=== PATIENT | male | born 1970 | race Caucasian/White ===

== ENCOUNTER 2016-08-07 19:31 | Emergency (ER) | payer BC ==
--- NOTE | 2016-08-07 19:44 | Emergency Department Record ---
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 Co-workers witnessed his knees buckle and the patient fall to the floor completely unconscious. Patient arrived here by EMS alert and conversive but with no recollection of what happened. He states he currently has a headache and a trace of a nose bleed, but he has had the nose bleeding throughout the day prior to this event. He saw his PCP on 08-03-16, and was placed on an antibiotic which he cannot recall the name of to treat a sinus infection. He says it has been bothering his stomach and he has had some diarrhea. He states he has been diagnosed with asthma and has had nasal surgery for polyps in the past. MD Complaint: Other (syncope) - Related Data Home Medications Medication Instructions Recorded Confirmed Last Taken Calcium Carbonate [Calcium] 500 mg PO Q72HR 04/27/16 04/27/16 04/26/16 Calcium+Zinc DAILY 07/07/16 Unknown Ubidecarenone [Coq-10] 30 mg PO DAILY cap 07/07/16 Unknown Previous Rx's Medication Instructions Recorded Albuterol Sulfate [Ventolin Hfa] 1 - 2 puff IH .EVERY 4-6 HRS PRN 12/27/14 #1 inhaler Allergies Allergy/AdvReac Type Severity Reaction Status Date / Time No Known Drug Allergies Allergy Unverified 08/03/16 18:56 Review of Systems Reviewed: No additional complaints except as noted below Constitutional: Reports: As per HPI. Denies: Chills, Fever, Malaise, Night sweats, Weakness, Weight change Eyes: Reports: As per HPI. Denies: Eye discharge, Eye pain, Photophobia, Vision change ENT: Reports: As per HPI. Denies: Congestion, Dental pain, Ear pain, Epistaxis , Hearing loss, Throat pain Respiratory: Reports: As per HPI. Denies: Cough, Dyspnea, Hemoptysis, Stridor, Wheezes Cardiovascular: Reports: As per HPI. Denies: Arrhythmia, Chest pain, Dyspnea on exertion, Edema, Murmurs, Orthopnea, Palpitations, Paroxysmal nocturnal dyspnea, Rheumatic Fever, Syncope Endocrine: Reports: As per HPI. Denies: Fatigue, Heat or cold intolerance, Polydipsia, Polyuria Gastrointestinal: Reports: As per HPI. Denies: Abdominal pain, Constipation, Diarrhea, Hematemesis, Hematochezia, Melena, Nausea, Vomiting Genitourinary: Reports: As per HPI. Denies: Dysuria, Frequency, Hematuria, Incontinence, Retention, Testicular pain, Testicular mass, Urgency Musculoskeletal: Reports: As per HPI. Denies: Arthralgia, Back pain, Gout, Joint swelling, Myalgia, Neck pain Skin: Reports: As per HPI. Denies: Bruising, Change in color, Change in hair/ nails, Lesions, Pruritus, Rash Neurological: Reports: As per HPI. Denies: Abnormal gait, Confusion, Headache, Numbness, Paresthesias, Seizure, Tingling, Tremors, Vertigo, Weakness Psychiatric: Reports: As per HPI. Denies: Anxiety, Auditory hallucinations, Depression, Homicidal thoughts, Suicidal thoughts, Visual hallucinations Hematological/Lymphatic: Reports: As per HPI. Denies: Anemia, Blood Clots, Easy bleeding, Easy bruising, Swollen glands Past Medical History - SOCIAL HISTORY Smoking Status: Former smoker Alcohol Use Comment: nightly beers Drug Use: None - RESPIRATORY Hx Respiratory Disorders: Yes Hx Asthma: Yes - CARDIOVASCULAR Hx Cardio Disorders: Yes Comment:: Murmur - NEURO Hx Neuro Disorders: Yes Hx Dizziness: Yes - GI Hx GI Disorders: No - Hx Genitourinary Disorders: Yes Hx Bladder Problem: Yes - ENDOCRINE Hx Endocrine Disorders: No - MUSCULOSKELETAL Hx Musculoskeletal Disorders: Yes Hx Osteoporosis: Yes - PSYCH Hx Psych Problems: Yes Hx Anxiety: Yes Hx Depression: Yes - HEMATOLOGY/ONCOLOGY Hx Hematology/Oncology Disorders: No Physical Exam - General General Appearance: Alert, Oriented x3, Cooperative, Mild distress (trying to recall why he "passed out," trace of fresh blood at nares, no active bleeding) - Head Head exam: Normocephalic, Other (mild tenderness over his distal nose, left cheek and left forehead.) - Eye Eye exam: Normal appearance, PERRL Pupils: Normal accommodation - ENT ENT exam: Normal exam, Mucous membranes dry, Normal external ear exam, Normal orophraynx, TM's normal bilaterally Ear exam: Normal external inspection. negative: External canal tenderness Nasal Exam: Normal inspection, Discharge (speech sounds congested, trace of fresh blood in nares), Sinus tenderness (left maxilla and left frontal) Mouth exam: Normal external inspection, Tongue normal Teeth exam: Normal inspection. negative: Dental caries Throat exam: Normal inspection. negative: Tonsillar erythema, Tonsillar exudate - Neck Neck exam: Normal inspection, Full ROM, Tenderness (mild diffused posterior neck tenderness on palpation). negative: Lymphadenopathy - Respiratory Respiratory exam: Normal lung sounds bilaterally. negative: Chest wall tenderness, Respiratory distress - Cardiovascular Cardiovascular Exam: Regular rate, Normal rhythm, Normal heart sounds - GI/Abdominal GI/Abdominal exam: Soft, Normal bowel sounds. negative: Tenderness - Rectal Rectal exam: Deferred - exam: Deferred - Extremities Extremities exam: Normal inspection, Full ROM, Normal capillary refill. negative: Tenderness - Back Back exam: Reports: Normal inspection, Full ROM. Denies: CVA tenderness (R), CVA tenderness (L), Muscle spasm, Rash noted, Tenderness - Neurological Neurological exam: Alert, CN II-XII intact, Oriented X3, Reflexes normal - Psychiatric Psychiatric exam: Normal affect, Normal mood - Skin Skin exam: Dry, Intact, Normal color, Warm Course - Reevaluation(s) Reevaluation #1: Nurse reports the patient admits to daily alcohol consumption, but that he has not had a drink for the past 6 days. Patient reports that he typically drinks 2 -3 beers nightly. 08/07/16 19:49 08/07/16 21:15 Reevaluation #2: Discussed with Neurosurgeon Dr. Montes De Oca who accepts patient in transfer. Discussed with Trauma surgery community health consultant Dr. Scherer and EDept. attending Dr. Alicea who accept patient in transfer. 08/07/16 21:16 08/07/16 21:20 Reevaluation #3: Repeat exam prior to transfer reveals patient is alert, follows commands appropriately, ad is oriented times 3. Pupils =, reactive, EOMI, equal collar tacker and SLR 4 extremities. Second IV large bore established. 08/07/16 21:25 Medical Decision Making - Management Options MDM Management: Additional Work-up Planned (e.g. ADM/Transfer/OP Study) ( Transfer to [facility] for services not available here including neurosurgery.) - Data Complexity MDM Data: Labs Ordered and/or Reviewed, X-Ray Ordered and/or Reviewed ( Noncontrast Head CT: Thin acute subdural hematoma in the right tentorum compared to the left. No other abnormalities, no midline shift. There are aif fluid levels in bothmaxillary antrums and moderate membrane thickening in the ethmoids. There are no facial fractures identified. Cervical spine has no acute fractures but has degenerative changes. Per radiologist. ), EKG Ordered and/or Reviewed - Lab Data Result diagrams: 08/07/16 19:30 08/07/16 19:55 - EKG Data -: EKG Interpreted by Me EKG: No Acute Changes (No prior available) - Radiology Data Radiology results: Report reviewed Disposition Disposition: Transfer Clinical Impression: Subdural hematoma, acute Disposition: Acute Care Hospital Transfer Transfer To: [facility] Emergency trauma/neurosurgery services Reason For Transfer: subdural hematoma, syncope Accepting Physician: Dr. Montes De Oca neurosurgery/Dr. Scherer trauma/Dr. Alicea EDept Time Discussed w/Accepting Physician: 21:24 Condition: (2) Stable Forms: Patient Portal Access
[2016-08-07] MEDS ORDERED: 0.9 % SODIUM CHLORIDE 1,000 ML BAG IV ONE (19:49)
[2016-08-07] MEDS ORDERED: ONDANSETRON 4 MG ODT TABLET SL ONE (19:49)
[2016-08-07 19:55] LABS: BASO % 0.2 % (0-6); EOS % 1.2 % (0-6); GRAN % 67.9 % (47-80); HEMOGLOBIN 14.8 gm/dl (14.0-18.0); LYMPH % 23.9 % (16-45); MEAN CELL VOLUME 94.7 fl (81-97); MEAN CORPUSCULAR HEMOGLOBIN 32.6 pg (27-33); MEAN CORPUSCULAR HGB CONC 34.4 g/dl (32-36); MEAN PLATELET VOLUME 10.6 fl (7.4-10.4); MONO % 6.8 % (0-9); PLATELET COUNT 287 K/uL (130-400); RED BLOOD COUNT 4.54 M/uL (4.40-5.70); RED CELL DISTRIBUTION WIDTH 11.8 % (11.5-14.5); WHITE BLOOD COUNT W/O DIFF 10.2 K/uL (4.2-12.2)
[2016-08-07 20:20] LABS: LACTIC ACID 2.2 mmol/L (0.7-2.1)
[2016-08-07 20:22] LABS: INR 0.93; PARTIAL THROMBOPLASTIN TIME 26.3 SECONDS (24.5-39.1); PROTHROMBIN TIME (PATIENT) 10.5 SECONDS (9.5-12.1)
[2016-08-07 20:34] LABS: BLOOD UREA NITROGEN 14 mg/dL (9-20); CREATININE 0.9 mg/dL (0.66-1.25); EST GLOMERULAR FILTRATION RATE > 60 ml/min; GLUCOSE,RANDOM 116 mg/dL (70-110)
[2016-08-07 20:35] LABS: ALKALINE PHOSPHATASE 92 U/L (38-126); ALT/SGPT 29 U/L (21-72); AST/SGOT 20 U/L (17-59); CKMB 0.6 ug/L (0-6); TOTAL PROTEIN 6.7 gm/dL (6.3-8.2); TROPONIN I < 0.012 ng/mL (0.00-0.034)
[2016-08-07 21:07] LABS: URINE APPEARANCE CLEAR; URINE BILIRUBIN NEGATIVE (NEGATIVE); URINE BLOOD NEGATIVE (NEGATIVE); URINE COLOR YELLOW; URINE GLUCOSE (UA) NEGATIVE (NEGATIVE); URINE KETONE NEGATIVE (NEGATIVE); URINE LEUKOCYTE ESTERASE NEGATIVE (NEGATIVE); URINE NITRITE NEGATIVE (NEGATIVE); URINE PROTEIN NEGATIVE (NEGATIVE); URINE UROBILINOGEN 0.2 E.U./dL (0.20 - 1.00)
[2016-08-07 21:12] LABS: AMPHETAMINE SCREEN URINE NOT DETECTED; BARBITURATE SCREEN URINE NOT DETECTED; BENZODIAZEPINE SCREEN URINE NOT DETECTED; COCAINE SCREEN URINE NOT DETECTED; METHADONE SCREEN URINE NOT DETECTED; METHAMPHETAMINE SCREEN NOT DETECTED; OPIATE SCREEN URINE NOT DETECTED; OXYCODONE SCREEN URINE NOT DETECTED; PHENCYCLIDINE SCREEN URINE NOT DETECTED; PROPOXYPHENE SCREEN URINE NOT DETECTED; THC SCREEN URINE NOT DETECTED; TRICYCLIC ANTIDEPRESSANT SCRN NOT DETECTED
[2016-08-07 21:28] LABS: D-DIMER 5.76 mg/L FEU (0-0.59)
[2016-08-07] MEDS ORDERED: ONDANSETRON HCL IV 4 MG/2 ML VIAL IVP ONE (21:37)
[2016-08-07] MEDS ORDERED: 0.9 % SODIUM CHLORIDE 1000ML 1,000 ML IV ONE (21:38)
--- NOTE | 2016-08-12 13:16 | RADIOLOGY REPORT ---
DATE: 08/07/2016 at 8:29 p.m. EXAM: PORTABLE CHEST. HISTORY: Syncope. TECHNIQUE: Single AP view of the chest. COMPARISON: Two views of the chest dated 07/25/2013. FINDINGS: Heart size is probably stable allowing for the current AP as opposed to previous PA positioning. No acute infiltrate evident. No definite pleural effusion or pneumothorax evident. Mild torsion of the aorta. IMPRESSION: MILD TORSION OF THE AORTA. NO DEFINITE ACUTE INFILTRATE SEEN. JOB [facility]BER: [id number] [facility]
--- NOTE | 2016-08-12 13:21 | CT SCAN REPORT ---
DATE: 08/07/2016 at 20:20 p.m. EXAM: HEAD CT. HISTORY: The patient fell with a headache. TECHNIQUE: Axial CT scan of the head performed without intravenous contrast. COMPARISON: None. ENCOUNTER: Initial. FINDINGS: There is asymmetry in the tentorium with the right tentorium appearing slightly thicker and hyperdense compared to the left. The possibility of a thin, acute subdural hematoma along the right tentorium cannot be excluded. Elsewhere no appearance to suggest an acute intracranial hemorrhage identified. There is no appreciable midline shift evident. Moderate membrane thickening in the ethmoids bilaterally. Air fluid level in both maxillary sinuses. No depressed calvarial fracture is identified. IMPRESSION: 1. APPEARANCE SUSPICIOUS FOR A THIN, ACUTE SUBDURAL HEMATOMA ALONG THE RIGHT TENTORIUM. ELSEWHERE NO ACUTE INTRACRANIAL HEMORRHAGE EVIDENT. 2. AIR FLUID LEVELS IN BOTH MAXILLARY SINUSES AND MODERATE MEMBRANE THICKENING IN THE ETHMOIDS. JOB NUMBER: [id number] [facility]
--- NOTE | 2016-08-12 13:26 | CT SCAN REPORT ---
EXAM: FACIAL BONE CT WITHOUT CONTRAST HISTORY: PATIENT PASSED OUT AT WORK, FELL, HIT FLOOR, HEAD AND NECK PAIN. TECHNIQUE: Axial CT scan of the facial bones was performed without IV contrast. Comparison: None. Encounter: Initial. FINDINGS: There are large frontal sinuses, consistent with developmental variant. Moderate membrane thickening in the ethmoids bilaterally. Air fluid levels in both maxillary antra. Mild membrane thickening anteriorly in the left sphenoid sinus. The visualized mastoids and middle ear cavities as well as visualized frontal sinuses appear negative. No abnormal air collection seen within either orbit. No prevertebral soft tissue swelling is evident. No definite facial bone fracture is seen. IMPRESSION: 1. NO DEFINITE FACIAL BONE FRACTURE IDENTIFIED. 2. AIR FLUID LEVELS IN BOTH MAXILLARY ANTRA AND PROMINENT MEMBRANE THICKENING IN THE ETHMOIDS. 3. VERY LARGE FRONTAL SINUSES, A DEVELOPMENTAL VARIANT. JOB NUMBER: [id number] [facility]
--- NOTE | 2016-08-12 13:31 | CT SCAN REPORT ---
DATE: 08/07/2016 at 8:23 p.m. EXAM: CERVICAL SPINE CT. HISTORY: Syncope. The patient passed out and fell. Neck pain. TECHNIQUE: Axial CT scan of the entire cervical spine was performed without intravenous contrast. COMPARISON: None. ENCOUNTER: Initial. FINDINGS: Air fluid levels seen in both maxillary antra as noted on the head CT today. No apical pneumothorax is evident. No definite fracture of the cervical spine identified. No prevertebral soft tissue swelling is evident. Mild degenerative change at the odontoid-anterior arch of C1 articulation. A small amount of air in the region of the right C2 foramen is presumably intravenous air related to intravenous access. Somewhat heterogeneous thyroid gland bilaterally. Subtle nodules cannot be excluded. This could be further assessed with a thyroid ultrasound non-emergently if clinically warranted. IMPRESSION: 1. NO DEFINITE FRACTURE OR PREVERTEBRAL SOFT TISSUE SWELLING SEEN IN THE CERVICAL SPINE. 2. DEGENERATIVE CHANGE AT THE ODONTOID-ANTERIOR ARCH OF C1 ARTICULATION. 3. AIR FLUID LEVEL OF BOTH MAXILLARY ANTRA. 4. SOMEWHAT HETEROGENEOUS APPEARING THYROID BILATERALLY DESCRIBED ABOVE. [facility]: [id number] [facility]
== END 2016-08-07 21:46 | disposition short-term general hospital (02) ==
LOC: ER 19:31
DX: S06.5X1A Traumatic subdural hemorrhage with loss of consciousness of 30 minutes or less, initial encounter (principal); M54.2 Cervicalgia; Z87.891 Personal history of nicotine dependence; W18.30XA Fall on same level, unspecified, initial encounter; Y99.0 Civilian activity done for income or pay
CPT/HCPCS: 99285 ×2; 96374; 83605; 85025; 85730; 85610; 80076; 82553; 84484; 80048; 81003; 80305; 85379; 71010; 72125; 70450; 70486; 93005; 93010; G0480; J2405; 80320; J7030

== ENCOUNTER 2017-03-22 07:23 | Emergency (ER) | payer BC ==
[2017-03-22] MEDS ORDERED: SODIUM CHLORIDE 0.9% 500 ML IV ONE (07:53)
--- NOTE | 2017-03-22 08:05 | Emergency Department Record ---
History of Present Illness - General Chief Complaint: Numbness Stated Complaint: NOT FEELING RIGHT Time Seen by Provider: 03/22/17 07:38 Source: Patient Mode of Arrival: EMS Limitations: No limitations - History of Present Illness Initial Comments: The patient states he is here due to not feeling right today. He states he woke up this AM in a pool of sweat and also may have bit his tongue. There was no fall or trauma or injury. The patient since waking up has had muscle aches and cramps but denies any recent injury, illness, vomiting, diarrhea, fever, chills , or headache. He went to work not feeling well and decided to call an ambulance because of it. Presently he denies any pain, visual changes, nausea, vomiting, or diarrhea. The patient did have a fall in July of this year that could have been a seizure and was transferred from here to [facility]. He states he had a battery of tests but no diagnosis was given. He additionally has had similar episodes in the past where he wakes up with his tongue bitten and very sweaty but no diagnosis has ever been given. Onset/Timin -: Minutes(s) History of same: Yes Place: Work Severity: Mild - Rakesh Coma Scale Eye Response: (4) Open spontaneously Motor Response: (6) Obeys commands Verbal Response: (5) Oriented Rakesh Total: 15 - Related Data Home Medications: Previous Rx's Medication Instructions Recorded Albuterol Sulfate [Ventolin Hfa] 1 - 2 puff IH .EVERY 4-6 HRS PRN 12/27/14 #1 inhaler Doxycycline Monohydrate [Mondoxyne 100 mg PO BID #20 capsule 03/22/17 Nl] Allergies/Adverse Reactions: Allergies Allergy/AdvReac Type Severity Reaction Status Date / Time No Known Drug Allergies Allergy Verified 03/22/17 07:37 Travel Screening - Travel/Exposure Within Last 30 Days Have you traveled within the last 30 days?: No - Travel/Exposure Within Last Year Have you traveled outside the [place] in the last year?: No - Additonal Travel Details Have you been exposed to anyone with a communicable illness?: No - Travel Symptoms Symptom Screening: None Review of Systems Constitutional: Denies: Chills, Fever Eyes: Denies: Eye discharge ENT: Denies: Congestion Respiratory: Denies: Cough, Dyspnea Cardiovascular: Denies: Chest pain Endocrine: Denies: Fatigue Gastrointestinal: Denies: Abdominal pain Genitourinary: Denies: Dysuria Musculoskeletal: Denies: Arthralgia Past Medical History - SOCIAL HISTORY Smoking Status: Former smoker Alcohol Use: Rare Alcohol Use Comment: daily before event in July Drug Use: None - RESPIRATORY Hx Respiratory Disorders: Yes Hx Asthma: Yes - CARDIOVASCULAR Hx Cardio Disorders: Yes Comment:: Murmur - NEURO Hx Neuro Disorders: Yes Hx Dizziness: Yes Hx Seizures: Yes (last July) Comment:: [place] 2002, [employer] at age 10 lasting 8 months - GI Hx GI Disorders: No - Hx Genitourinary Disorders: Yes Hx Bladder Problem: Yes - ENDOCRINE Hx Endocrine Disorders: No - MUSCULOSKELETAL Hx Musculoskeletal Disorders: Yes Hx Osteoporosis: Yes - PSYCH Hx Psych Problems: Yes Hx Anxiety: Yes Hx Depression: Yes - HEMATOLOGY/ONCOLOGY Hx Hematology/Oncology Disorders: No Family Medical History Any Significant Family History?: Yes Physical Exam - General General Appearance: Alert, Oriented x3, Cooperative, No acute distress - Head Head exam: Atraumatic, Normocephalic, Normal inspection - Eye Eye exam: Normal appearance, PERRL - ENT Mouth exam: negative: Normal external inspection, Tongue normal (There is bruising to the distal tongue which does appear to be from biting.) - Neck Neck exam: Normal inspection, Full ROM. negative: Tenderness - Respiratory Respiratory exam: Normal lung sounds bilaterally. negative: Respiratory distress - Cardiovascular Cardiovascular Exam: Regular rate, Normal rhythm, Normal heart sounds - GI/Abdominal GI/Abdominal exam: Soft, Normal bowel sounds. negative: Tenderness - Extremities Extremities exam: Normal inspection, Full ROM, Normal capillary refill. negative: Tenderness - Neurological Neurological exam: Alert, Normal gait, Oriented X3, Other (Neg Drift and Rhomberg.). negative: Abnormal gait, Altered, Motor sensory deficit - Psychiatric Psychiatric exam: negative: Anxious, Depressed Course Vital Signs 03/22/17 07:27 Temperature 99.1 F Pulse Rate 88 Respiratory 18 Rate Blood Pressure 153/100 Pulse Ox 97 - Reevaluation(s) Reevaluation #1: I explained to the patient that he may have had a seizure and that we do recommend hospital admission for monitoring and for a seizure workup. The patient is refusing and will not agree to be transferred for a Neurology consult and EEG. I also offered to admit the patient to this hospital for monitoring and to possibly obtain the EEG here but he is refusing that also. I explained to him that the risk of leaving is that he could leave and have a seizure, stroke, become disabled and even . He understands and accepts the risks. He also was told to not drive or operate heavy machinery until this is evaluated further. 03/22/17 09:13 03/22/17 09:18 Medical Decision Making - Data Complexity MDM Data: Labs Ordered and/or Reviewed, X-Ray Ordered and/or Reviewed, EKG Ordered and/or Reviewed - Lab Data Result diagrams: 03/22/17 07:00 03/22/17 07:00 - EKG Data -: EKG Interpreted by Me EKG: No Acute Changes, Normal EKG - Radiology Data Radiology results: Report reviewed (Head CT: No acute intracranial abnormalities. R maxillary sinusitis.) Disposition Disposition: Discharge Clinical Impression: Weakness Disposition: Against Medical Advice Condition: (2) Stable Instructions: Weakness (ED) Additional Instructions: Please drink plenty of fluids and take the Doxycyline as directed. Please see your PCP for recheck CHRISTA. Please return to the ER for any seizure activity, pain, trauma or any injuries. Prescriptions: Doxycycline Monohydrate [Mondoxyne Nl] 100 mg PO BID #20 capsule Forms: Patient Portal Access Time of Disposition: 09:21 Quality - Quality Measures Quality Measures: N/A - Blood Pressure Screening View Details: Yes Does Patient Have Any of the Following: No Blood Pressure Classification: Hypertensive Reading Systolic Measurement: 132 Diastolic Measurement: 94 Screening for High Blood Pressure: < Pre-Hypertensive BP, F/U Documented > [ [id number]] Pre-Hypertensive Follow-up Interventions: Referral to alternative/primary care provider.
[2017-03-22 08:10] LABS: URINE APPEARANCE CLEAR; URINE BILIRUBIN NEGATIVE (NEGATIVE); URINE BLOOD NEGATIVE (NEGATIVE); URINE COLOR YELLOW; URINE GLUCOSE (UA) NEGATIVE (NEGATIVE); URINE KETONE NEGATIVE (NEGATIVE); URINE LEUKOCYTE ESTERASE NEGATIVE (NEGATIVE); URINE NITRITE NEGATIVE (NEGATIVE); URINE PROTEIN NEGATIVE (NEGATIVE); URINE UROBILINOGEN 0.2 E.U./dL (0.20 - 1.00)
[2017-03-22 08:10] LABS: BASO % 0.2 % (0-6); EOS % 1.5 % (0-6); HEMATOCRIT 39.9 % (42.0-52.0); HEMOGLOBIN 13.6 gm/dl (14.0-18.0); LYMPH % 7.1 % (16-45); MEAN CELL VOLUME 93.4 fl (81-97); MEAN CORPUSCULAR HGB CONC 34.1 g/dl (32-36); MEAN PLATELET VOLUME 10.8 fl (7.4-10.4); MONO % 6.1 % (0-9); PLATELET COUNT 248 K/uL (130-400); RED BLOOD COUNT 4.27 M/uL (4.40-5.70); RED CELL DISTRIBUTION WIDTH 11.7 % (11.5-14.5); WHITE BLOOD COUNT W/O DIFF 13.3 K/uL (4.2-12.2)
[2017-03-22 08:11] LABS: MEAN CORPUSCULAR HEMOGLOBIN 31.8 pg (27-33)
[2017-03-22 08:16] LABS: AMPHETAMINE SCREEN URINE NOT DETECTED; BARBITURATE SCREEN URINE NOT DETECTED; BENZODIAZEPINE SCREEN URINE NOT DETECTED; COCAINE SCREEN URINE NOT DETECTED; METHADONE SCREEN URINE NOT DETECTED; METHAMPHETAMINE SCREEN NOT DETECTED; OPIATE SCREEN URINE NOT DETECTED; OXYCODONE SCREEN URINE NOT DETECTED; PHENCYCLIDINE SCREEN URINE NOT DETECTED; PROPOXYPHENE SCREEN URINE NOT DETECTED; THC SCREEN URINE NOT DETECTED; TRICYCLIC ANTIDEPRESSANT SCRN NOT DETECTED
[2017-03-22 08:23] LABS: ALBUMIN 3.9 g/dL (4.0-5.0); ALKALINE PHOSPHATASE 110 U/L (40-129); ALT/SGPT 21 U/L (<41); AST/SGOT 27 U/L (10.0-50.0); BLOOD UREA NITROGEN 10 mg/dL (6-20); CREATININE 0.6 mg/dL (0.7-1.2); EST GLOMERULAR FILTRATION RATE > 60 mL/min; GLUCOSE,RANDOM 103 mg/dL (74-109); TOTAL PROTEIN 6.4 g/dL (6.6-8.7)
[2017-03-22 08:26] LABS: BILIRUBIN,DIRECT < 0.2 mg/dL (0-0.3)
--- NOTE | 2017-03-23 08:10 | CT SCAN REPORT ---
DATE: 03/22/2017. EXAM: CT OF THE BRAIN WITHOUT CONTRAST. HISTORY: Seizure. TECHNIQUE: Sequential axial images were obtained from the foramen magna to the vertex without contrast administration. FINDINGS: There is no large territorial infarct, hemorrhage, mass effect, or midline shift. There is right maxillary sinus disease. No extra-axial fluid collection. Mastoid air cells appear normal. IMPRESSION: 1. NO ACUTE INTRACRANIAL ABNORMALITY APPRECIATED. 2. RIGHT MAXILLARY SINUS DISEASE. JOB NUMBER: [id number] [facility]
== END 2017-03-22 09:31 | disposition left against medical advice (07) ==
LOC: ER 07:23
DX: R56.9 Unspecified convulsions (principal); R53.1 Weakness
CPT/HCPCS: 70450; 80048; 80076; 80305; 81003; 82550; 85027; 93005; 93010; 99284

== ENCOUNTER 2018-03-20 02:47 | Emergency (ER) | payer BC ==
--- NOTE | 2018-03-20 03:44 | Emergency Department Record ---
History of Present Illness - General Chief Complaint: General Stated Complaint: FEELING TINGLY ALL OVER Time Seen by Provider: 03/20/18 03:11 Source: Patient Mode of Arrival: Ambulatory Limitations: No limitations - History of Present Illness Initial Comments: pt states he fell asleep tonjght and slept very hard and kicked his coffee cup over and he bit his tongue twice. he now feels all tingly. he has had similar episodes in the past -: Hour(s) Place: Home Severity: Mild Quality: Tingling Improves With: None Worsens With: None Associated Symptoms: Denies other symptoms - [place] Coma Scale Eye Response: (4) Open spontaneously Motor Response: (6) Obeys commands Verbal Response: (5) Oriented [place] Total: 15 - Symptoms of Stroke Symptoms of stroke: Numbness - Related Data Home Medications: Home Medications Medication Instructions Recorded Confirmed Last Taken Multivitamin [Multi-Vitamin Daily] 1 each PO DAILY 03/20/18 03/20/18 Unknown Allergies/Adverse Reactions: Allergies Allergy/AdvReac Type Severity Reaction Status Date / Time No Known Drug Allergies Allergy Verified 03/20/18 02:49 Travel Screening - Travel/Exposure Within Last 30 Days Have you traveled within the last 30 days?: No - Travel Symptoms Symptom Screening: None Review of Systems Reviewed: No additional complaints except as noted below Constitutional: Reports: As per HPI. Denies: Chills, Fever, Malaise, Night sweats, Weakness, Weight change Eyes: Reports: As per HPI. Denies: Eye discharge, Eye pain, Photophobia, Vision change ENT: Reports: As per HPI. Denies: Congestion, Dental pain, Ear pain, Epistaxis , Hearing loss, Throat pain Respiratory: Reports: As per HPI. Denies: Cough, Dyspnea, Hemoptysis, Stridor, Wheezes Cardiovascular: Reports: As per HPI. Denies: Arrhythmia, Chest pain, Dyspnea on exertion, Edema, Murmurs, Orthopnea, Palpitations, Paroxysmal nocturnal dyspnea, Rheumatic Fever, Syncope Endocrine: Reports: As per HPI. Denies: Fatigue, Heat or cold intolerance, Polydipsia, Polyuria Gastrointestinal: Reports: As per HPI. Denies: Abdominal pain, Constipation, Diarrhea, Hematemesis, Hematochezia, Melena, Nausea, Vomiting Genitourinary: Reports: As per HPI. Denies: Dysuria, Frequency, Hematuria, Incontinence, Retention, Testicular pain, Testicular mass, Urgency Musculoskeletal: Reports: As per HPI. Denies: Arthralgia, Back pain, Gout, Joint swelling, Myalgia, Neck pain Skin: Reports: As per HPI. Denies: Bruising, Change in color, Change in hair/ nails, Lesions, Pruritus, Rash Neurological: Reports: As per HPI, Tingling. Denies: Abnormal gait, Confusion, Headache, Numbness, Paresthesias, Seizure, Tremors, Vertigo, Weakness Psychiatric: Reports: As per HPI. Denies: Anxiety, Auditory hallucinations, Depression, Homicidal thoughts, Suicidal thoughts, Visual hallucinations Hematological/Lymphatic: Reports: As per HPI. Denies: Anemia, Blood Clots, Easy bleeding, Easy bruising, Swollen glands Past Medical History - SOCIAL HISTORY Smoking Status: Former smoker Alcohol Use: None Drug Use: None - RESPIRATORY Hx Respiratory Disorders: Yes Hx Asthma: Yes - CARDIOVASCULAR Hx Cardio Disorders: Yes Comment:: Murmur - NEURO Hx Neuro Disorders: Yes Hx Dizziness: Yes Hx Seizures: Yes (last July) Comment:: [place] 2002, [facility] at age 10 lasting 8 months; fall w/ subdural - GI Hx GI Disorders: No - Hx Genitourinary Disorders: Yes Hx Bladder Problem: Yes - ENDOCRINE Hx Endocrine Disorders: No - MUSCULOSKELETAL Hx Musculoskeletal Disorders: Yes Hx Osteoporosis: Yes - PSYCH Hx Psych Problems: Yes Hx Anxiety: Yes Hx Depression: Yes - HEMATOLOGY/ONCOLOGY Hx Hematology/Oncology Disorders: No Family Medical History Any Significant Family History?: Yes Hx Dementia: Mother, Grandparents Physical Exam - General General Appearance: Alert, Oriented x3, Cooperative, Mild distress - Head Head exam: Normal inspection - Eye Eye exam: Normal appearance, PERRL, EOMI Pupils: Normal accommodation - ENT ENT exam: Normal exam, Mucous membranes moist, Normal external ear exam, Normal orophraynx Ear exam: Normal external inspection. negative: External canal tenderness Nasal Exam: Normal inspection. negative: Discharge, Sinus tenderness Mouth exam: Normal external inspection, Other ( tpngue tender, no active bleeding) Teeth exam: Normal inspection. negative: Dental caries Throat exam: Normal inspection. negative: Tonsillar erythema, Tonsillar exudate - Neck Neck exam: Normal inspection, Full ROM. negative: Tenderness - Respiratory Respiratory exam: Normal lung sounds bilaterally. negative: Respiratory distress - Cardiovascular Cardiovascular Exam: Regular rate, Normal rhythm, Normal heart sounds - GI/Abdominal GI/Abdominal exam: Soft, Normal bowel sounds. negative: Tenderness - Rectal Rectal exam: Deferred - exam: Deferred - Extremities Extremities exam: Normal inspection, Full ROM, Normal capillary refill. negative: Tenderness - Back Back exam: Reports: Normal inspection, Full ROM. Denies: Muscle spasm, Rash noted, Tenderness - Neurological Neurological exam: Alert, CN II-XII intact, Normal gait, Oriented X3 - Psychiatric Psychiatric exam: Normal affect, Normal mood - Skin Skin exam: Dry, Intact, Normal color, Warm Course Vital Signs 03/20/18 02:54 Temperature 98.6 F Pulse Rate [ 71 Pulse Ox Probe] Respiratory 20 Rate Blood Pressure 143/98 [Left Arm] Pulse Ox 97 - Reevaluation(s) Reevaluation #1: 03/20/18 04:41 pt states hes been having intermittent tingling for years in his whole body, especially the lower extremities Medical Decision Making - Lab Data Result diagrams: 03/20/18 03:40 03/20/18 03:40 Disposition Disposition: Discharge Clinical Impression: Seizure-like activity Disposition: Home, Self-Care Condition: (1) Good Instructions: New Onset Absence Seizures in Adults (ED) Additional Instructions: follow up with neurologist CHRISTA for further evaluation and EEG. return sooner if worse. no driving until cleared by neurologist Referrals: [facility] [Provider Group] Forms: Patient Portal Access Quality - Quality Measures Quality Measures: N/A - Blood Pressure Screening Does Patient Have Any of the Following: No Blood Pressure Classification: Hypertensive Reading Systolic Measurement: 143 Diastolic Measurement: 98 Screening for High Blood Pressure: < First Hypertensive BP, F/U Documented > [ G8950] First Hypertensive Follow-up Interventions: Follow-up with rescreen GT 1 day and LT 4 weeks.
[2018-03-20 03:47] LABS: BASO % 0.3 % (0-6); EOS % 4.1 % (0-6); GRAN % 76.1 % (47-80); HEMATOCRIT 40.8 % (42.0-52.0); HEMOGLOBIN 13.8 gm/dl (14.0-18.0); MEAN CELL VOLUME 94.9 fl (81-97); MEAN CORPUSCULAR HGB CONC 33.8 g/dl (32-36); MEAN PLATELET VOLUME 10.2 fl (7.4-10.4); MONO % 6.5 % (0-9); PLATELET COUNT 282 K/uL (130-400); RED CELL DISTRIBUTION WIDTH 11.5 % (11.5-14.5); URINE APPEARANCE CLEAR; URINE BILIRUBIN NEGATIVE (NEGATIVE); URINE BLOOD NEGATIVE (NEGATIVE); URINE COLOR YELLOW; URINE GLUCOSE (UA) NEGATIVE (NEGATIVE); URINE KETONE NEGATIVE (NEGATIVE); URINE LEUKOCYTE ESTERASE NEGATIVE (NEGATIVE); URINE NITRITE NEGATIVE (NEGATIVE); URINE PROTEIN NEGATIVE (NEGATIVE); URINE UROBILINOGEN 0.2 E.U./dL (0.20 - 1.00)
[2018-03-20 03:51] LABS: AMPHETAMINE SCREEN URINE NOT DETECTED; BARBITURATE SCREEN URINE NOT DETECTED; BENZODIAZEPINE SCREEN URINE NOT DETECTED; COCAINE SCREEN URINE NOT DETECTED; METHADONE SCREEN URINE NOT DETECTED; METHAMPHETAMINE SCREEN NOT DETECTED; OPIATE SCREEN URINE NOT DETECTED; OXYCODONE SCREEN URINE NOT DETECTED; PHENCYCLIDINE SCREEN URINE NOT DETECTED; PROPOXYPHENE SCREEN URINE NOT DETECTED; THC SCREEN URINE NOT DETECTED; TRICYCLIC ANTIDEPRESSANT SCRN NOT DETECTED
[2018-03-20 04:00] LABS: BLOOD UREA NITROGEN 15 mg/dL (6-20); EST GLOMERULAR FILTRATION RATE > 60 mL/min; TOTAL PROTEIN 7.1 g/dL (6.6-8.7)
[2018-03-20 04:02] LABS: GLUCOSE,RANDOM 110 mg/dL (74-109)
[2018-03-20 04:05] LABS: ALB/GLOB RATIO 1.6 (1.1-1.8); ALBUMIN 4.4 g/dL (4.0-5.0); ALKALINE PHOSPHATASE 109 U/L (40-129); ALT/SGPT 28 U/L (<41); AST/SGOT 21 U/L (10.0-50.0)
[2018-03-20 04:16] LABS: THYROID STIMULATING HORMONE 2.18 uIU/mL (0.270-4.20)
--- NOTE | 2018-03-21 15:05 | CT SCAN REPORT ---
EXAM: NONCONTRAST CT OF THE HEAD HISTORY: POSSIBLE SEIZURE AND LETHARGY. TECHNIQUE: Noncontrast CT of the head was obtained. Comparison: Noncontrast CT of the head 03/22/17. FINDINGS: No midline shift, mass effect, or abnormal intra or extraaxial fluid collection. No cerebral edema. Focal mass or intracranial hemorrhage detected. Focal hypodensities in the subinsular regions bilaterally, seen previously and suggestive of remote lacunar infarctions. The ventricles are within normal size limits. The basal cisterns are not effaced. Partial opacification of bilateral ethmoid air cells and the maxillary sinuses, more prominent on the right. No evidence of a displaced calvarial fracture on bone window images. IMPRESSION: 1. NO DEFINITE ACUTE INTRACRANIAL FINDINGS. CHRONIC FOCAL HYPODENSITIES IN THE SUBINSULAR REGIONS OF BILATERAL BASAL GANGLIA, SIMILAR FROM PRIOR. 2. BILATERAL ETHMOID AND MAXILLARY SINUS DISEASE. JOB NUMBER: [id number] MTDD
== END 2018-03-20 04:56 | disposition home or self-care (01) ==
LOC: ER 02:47
DX: R56.9 Unspecified convulsions (principal); Z87.891 Personal history of nicotine dependence
CPT/HCPCS: 70450; 80053; 80305; 81003; 84443; 85025; 99283; 99284

== ENCOUNTER 2019-02-12 05:35 | Emergency (ER) | payer BC ==
[2019-02-12] MEDS ORDERED: DOXYCYCLINE HYCLATE 100 MG CAPSULE PO ONE (05:55)
[2019-02-12] MEDS ORDERED: ALBUTEROL SULFATE (0.083%) 2.5 MG/3 ML NEB INH ONE (05:56)
--- NOTE | 2019-02-12 05:56 | Emergency Department Record ---
History of Present Illness - General Chief Complaint: Cough Stated Complaint: CHEST CONGESTION/OVI Time Seen by Provider: 02/12/19 05:47 Source: Patient Mode of Arrival: Ambulatory Limitations: No limitations - History of Present Illness Initial Comments: The patient is here due to a 10 day hx of cough and congestion which has been slowly worsening. He woke up this AM SOB with feeling that his chest was tight similar to when he was young and had asthma. There has been no fever, chills, CP, bloody sputum or ST but he has had nasal congestion. MD Complaint: Cough, Nasal congestion, Rhinorrhea Onset/Timin -: Days(s) Severity: Mild Severity scale (1-10): 2 Consistency: Constant, Getting worse - Related Data Previous Rx's Medication Instructions Recorded Albuterol Sulfate [Proair Hfa] 2 puff IH QID PRN #1 inhaler 02/12/19 Doxycycline Monohydrate [Mondoxyne 100 mg PO BID 7 Days #14 capsule 02/12/19 Nl] Allergies Allergy/AdvReac Type Severity Reaction Status Date / Time No Known Drug Allergies Allergy Unverified 08/11/18 11:05 Travel Screening - Travel/Exposure Within Last 30 Days Have you traveled within the last 30 days?: No - Travel Symptoms Symptom Screening: None Review of Systems Constitutional: Reports: Malaise. Denies: Chills, Fever Eyes: Denies: Eye discharge ENT: Reports: Congestion Respiratory: Reports: Cough, Dyspnea. Denies: Hemoptysis Cardiovascular: Denies: Chest pain Past Medical History - SOCIAL HISTORY Smoking Status: Former smoker Alcohol Use: None Drug Use: None - RESPIRATORY Hx Respiratory Disorders: Yes Hx Asthma: Yes - CARDIOVASCULAR Hx Cardio Disorders: Yes Comment:: Murmur - NEURO Hx Neuro Disorders: Yes Hx Dizziness: Yes Hx Seizures: Yes (last July) Comment:: [place] 2002, [facility] at age 10 lasting 8 months; 2-2016 fall w/subdural - GI Hx GI Disorders: No - Hx Genitourinary Disorders: Yes Hx Bladder Problem: Yes - ENDOCRINE Hx Endocrine Disorders: No - MUSCULOSKELETAL Hx Musculoskeletal Disorders: Yes Hx Osteoporosis: Yes - PSYCH Hx Psych Problems: Yes Hx Anxiety: Yes Hx Depression: Yes - HEMATOLOGY/ONCOLOGY Hx Hematology/Oncology Disorders: No Family Medical History Any Significant Family History?: Yes Hx Dementia: Mother, Grandparents Physical Exam - General General Appearance: Alert, Oriented x3, Cooperative, No acute distress - Head Head exam: Atraumatic, Normocephalic, Normal inspection - Eye Eye exam: Normal appearance, PERRL. negative: Conjunctival injection - ENT ENT exam: negative: TM's normal bilaterally (There is bilateral cerumen blocking visualization of the TM's.) Nasal Exam: Discharge Throat exam: Normal inspection. negative: Tonsillar erythema, Tonsillomegaly, Tonsillar exudate - Neck Neck exam: Normal inspection, Full ROM. negative: Tenderness - Respiratory Respiratory exam: Normal lung sounds bilaterally. negative: Respiratory distress, Rhonchi, Stridor, Wheezes - Cardiovascular Cardiovascular Exam: Regular rate, Normal rhythm, Normal heart sounds - GI/Abdominal GI/Abdominal exam: Soft, Normal bowel sounds. negative: Tenderness - Extremities Extremities exam: Normal inspection, Full ROM, Normal capillary refill. negative: Tenderness - Back Back exam: Reports: Normal inspection - Neurological Neurological exam: Alert, Normal gait. negative: Abnormal gait, Motor sensory deficit Course Vital Signs 02/12/19 05:40 Temperature 97.8 F Pulse Rate [ 65 Pulse Ox Probe] Respiratory 24 Rate Blood Pressure 141/89 Pulse Ox 97 - Reevaluation(s) Reevaluation #1: I did explain to the patient that we will treat him with an oral Abx along with an inhaller. We will give him an albuterol tx here in the ER due to the slight chest tightness and will also start him on an oral Abx. 02/12/19 05:59 Reevaluation #2: The patient is feeling better after the albuterol tx. His lungs are clear and definitely feel less tight per patient. He feels ready for home. 02/12/19 06:12 Disposition Disposition: Discharge Clinical Impression: Bronchitis Disposition: Home, Self-Care Condition: (2) Stable Instructions: Acute Bronchitis (ED) Additional Instructions: Please use your home FLonase and add an OTC antihistamine decongestant as needed. Continue the Doxycyline and Albuterol as directed and please see your doctor this week if not better. Return to the ER for any worsening symptoms. Prescriptions: Doxycycline Monohydrate [Mondoxyne Nl] 100 mg PO BID 7 Days #14 capsule Albuterol Sulfate [Proair Hfa] 2 puff IH QID PRN #1 inhaler PRN Reason: Cough And Difficulty Breathing Forms: Patient Portal Access Time of Disposition: 06:03 Quality - Quality Measures Quality Measures: N/A - Blood Pressure Screening View Details: Yes Does Patient Have Any of the Following: No Blood Pressure Classification: Pre-Hypertensive BP Reading Systolic Measurement: 141 Diastolic Measurement: 89 Screening for High Blood Pressure: < Pre-Hypertensive BP, F/U Documented > [G8950] Pre-Hypertensive Follow-up Interventions: Referral to alternative/primary care provider.
== END 2019-02-12 06:19 | disposition home or self-care (01) ==
LOC: ER 05:35
DX: J20.9 Acute bronchitis, unspecified (principal); R07.89 Other chest pain; Z87.891 Personal history of nicotine dependence
CPT/HCPCS: 94640; 99283; J7613

== ENCOUNTER 2019-05-10 16:22 | Emergency (ER) | payer BC ==
[2019-05-10] MEDS ORDERED: ACETAMINOPHEN 1,000 MG/100 ML BTL IVPB ONE (16:43)
--- NOTE | 2019-05-10 16:46 | Emergency Department Record ---
History of Present Illness - General Chief Complaint: Abdominal Pain Stated Complaint: ABD PAIN Time Seen by Provider: 05/10/19 16:36 Source: Patient Mode of Arrival: Ambulatory Limitations: No limitations - History of Present Illness Initial Comments: The patient is here due to a 3 week hx of bilateral lower chest pain. The pain is sharp and stabbing and worse with rolling over in bed and movement. There has been no SOB, OVI, sweating or nausea with the pain. The patient denies that the pain is related to eating or drinking. He has had some upper abdominal pain also but that is gone now. MD Complaint: Other Onset/Timin -: Week(s) Location: Other (lower anterior chest.) Radiation: None Severity scale (1-10): 3 Quality: Sharp Consistency: Intermittent Improves With: Nothing Worsens With: Nothing - Related Data Previous Rx's Medication Instructions Recorded Naproxen [Naprosyn] 500 mg PO BID #14 tablet. 05/10/19 Allergies Allergy/AdvReac Type Severity Reaction Status Date / Time No Known Drug Allergies Allergy Verified 05/10/19 16:28 Travel Screening - Travel/Exposure Within Last 30 Days Have you traveled within the last 30 days?: No - Travel/Exposure Within Last Year Have you traveled outside the [place] in the last year?: No - Additonal Travel Details Have you been exposed to anyone with a communicable illness?: No - Travel Symptoms Symptom Screening: None Review of Systems Constitutional: Denies: Chills, Fever Eyes: Denies: Eye discharge ENT: Denies: Congestion Respiratory: Reports: Cough. Denies: Dyspnea Past Medical History - SOCIAL HISTORY Smoking Status: Former smoker Alcohol Use: Occasional Drug Use: None - RESPIRATORY Hx Respiratory Disorders: Yes Hx Asthma: Yes - CARDIOVASCULAR Hx Cardio Disorders: Yes Comment:: Murmur - NEURO Hx Neuro Disorders: Yes Hx Dizziness: Yes Hx Seizures: Yes (last July) Comment:: [place] 2002, [facility] at age 10 lasting 8 months; 2-2016 fall w/subdural - GI Hx GI Disorders: No - Hx Genitourinary Disorders: Yes Hx Bladder Problem: Yes - ENDOCRINE Hx Endocrine Disorders: No - MUSCULOSKELETAL Hx Musculoskeletal Disorders: Yes Hx Osteoporosis: Yes - PSYCH Hx Psych Problems: Yes Hx Anxiety: Yes Hx Depression: Yes - HEMATOLOGY/ONCOLOGY Hx Hematology/Oncology Disorders: No Family Medical History Any Significant Family History?: Yes Hx Dementia: Mother, Grandparents Physical Exam - General General Appearance: Alert, Oriented x3, Cooperative, No acute distress - Head Head exam: Atraumatic, Normocephalic, Normal inspection - Eye Eye exam: Normal appearance, PERRL, EOMI - ENT Throat exam: Normal inspection. negative: Tonsillar erythema, Tonsillar exudate - Neck Neck exam: Normal inspection, Full ROM. negative: Tenderness - Respiratory Respiratory exam: Normal lung sounds bilaterally, Chest wall tenderness (The pain is 100% reproducible with palpation of the anterior mid chest wall just below the nipples. ). negative: Respiratory distress - Cardiovascular Cardiovascular Exam: Regular rate, Normal rhythm, Normal heart sounds - GI/Abdominal GI/Abdominal exam: Soft, Normal bowel sounds. negative: Distended, Guarding, Hernia, Rebound, Rigid, Tenderness (There is no RUQ tenderness.) - Extremities Extremities exam: Normal inspection, Full ROM, Normal capillary refill. negative: Tenderness Image of Full Body: 1 - Area of pain and tenderness. 2 - Area of pain and tenderness. - Back Back exam: Reports: Normal inspection - Neurological Neurological exam: Alert, Normal gait. negative: Abnormal gait, Motor sensory deficit Course Vital Signs 05/10/19 16:30 Temperature 98.3 F Pulse Rate 62 Respiratory 20 Rate Blood Pressure 136/88 Pulse Ox 97 - Reevaluation(s) Reevaluation #1: The patient is doing much better and is pain free at this time. He still does h ave very mild pain with deep palpation and chest twisting. I did discuss the xray results with him and the need for F/U with his PCP for a chest CT. I also did discuss the fact he does not have any abdominal pain or tenderness and his cardiac evaluation was all normal. 05/10/19 17:37 Medical Decision Making - Data Complexity MDM Data: Labs Ordered and/or Reviewed, X-Ray Ordered and/or Reviewed, EKG Ordered and/or Reviewed - Lab Data Result diagrams: 05/10/19 16:30 05/10/19 16:30 - EKG Data -: EKG Interpreted by Me EKG: No Acute Changes, Normal EKG - Radiology Data Radiology results: Report reviewed (CXR: Nodule in the L lower lobe, O/W neg.) Disposition Disposition: Discharge Clinical Impression: Chest wall pain Disposition: Home, Self-Care Condition: (2) Stable Instructions: Chest Wall Pain (ED) Additional Instructions: Please take the Naprosyn as directed and please see your family doctor for recheck and possibly a chest CT vs repeat chest xrays. Return to the ER for any worsening pain, fever, or vomiting. Prescriptions: Naproxen [Naprosyn] 500 mg PO BID #14 tablet.dr Forms: Patient Portal Access Time of Disposition: 17:40 Quality - Quality Measures Quality Measures: N/A - Blood Pressure Screening View Details: Yes Does Patient Have Any of the Following: No Blood Pressure Classification: Pre-Hypertensive BP Reading Systolic Measurement: 136 Diastolic Measurement: 88 Screening for High Blood Pressure: < Pre-Hypertensive BP, F/U Documented > [G8950] Pre-Hypertensive Follow-up Interventions: Referral to alternative/primary care provider.
[2019-05-10 16:53] LABS: ABSOLUTE NEUTROPHIL COUNT 4.57; BASO % 0.4 % (0-6); EOS % 2.9 % (0-6); HEMATOCRIT 41.7 % (42.0-52.0); HEMOGLOBIN 13.9 gm/dl (14.0-18.0); LYMPH % 25.7 % (16-45); MEAN CELL VOLUME 95.9 fl (81-97); MEAN CORPUSCULAR HGB CONC 33.3 g/dl (32-36); MEAN PLATELET VOLUME 10.5 fl (7.4-10.4); PLATELET COUNT 276 K/uL (130-400); RED BLOOD COUNT 4.35 M/uL (4.40-5.70); RED CELL DISTRIBUTION WIDTH 11.5 % (11.5-14.5); WHITE BLOOD COUNT W/O DIFF 7.3 K/uL (4.2-12.2)
[2019-05-10 16:55] LABS: MEAN CORPUSCULAR HEMOGLOBIN 31.9 pg (27-33)
[2019-05-10 17:03] LABS: BLOOD UREA NITROGEN 13 mg/dL (6-20); CREATININE 0.6 mg/dL (0.7-1.2); EST GLOMERULAR FILTRATION RATE > 60 mL/min
[2019-05-10 17:04] LABS: TOTAL PROTEIN 7.5 g/dL (6.6-8.7)
[2019-05-10 17:06] LABS: GLUCOSE,RANDOM 106 mg/dL (74-109)
[2019-05-10 17:08] LABS: ALBUMIN 4.5 g/dL (4.0-5.0); ALT/SGPT 19 U/L (<41); AST/SGOT 19 U/L (10.0-50.0); BILIRUBIN,DIRECT < 0.2 mg/dL (0-0.3)
[2019-05-10 17:09] LABS: ALKALINE PHOSPHATASE 117 U/L (40-129)
--- NOTE | 2019-05-10 17:20 | RADIOLOGY REPORT ---
EXAMINATION: Two View Chest Radiographs EXAM DATE: 05/10/2019 5:10 PM TECHNIQUE: Frontal and lateral views INDICATION: cough COMPARISON: August 07, 2016 ENCOUNTER: Not applicable FINDINGS: The heart, mediastinum, and pulmonary vasculature are normal. 7 mm nodular density left lower lobe. N o lung consolidation or pleural effusions are present. IMPRESSION: Negative for focal infiltrate. 7 mm the nodular density left lower lobe. While this may be related to overlapping rib shadows a pulm onary nodule cannot be excluded. If clinically indicated this region could be better evaluated with o blique images or CT scan of the chest. Dictated by: Lea Alexander MD on 05/10/2019 5:13 PM. .
== END 2019-05-10 17:50 | disposition home or self-care (01) ==
LOC: ER 16:22
DX: R07.89 Other chest pain (principal); R91.1 Solitary pulmonary nodule; Z87.891 Personal history of nicotine dependence
CPT/HCPCS: 71046; 80048; 80076; 84484; 85025; 93005; 93010; 96365; 99284

== ENCOUNTER 2019-07-22 13:54 | Emergency (ER) | payer BC ==
--- NOTE | 2019-07-22 14:36 | Emergency Department Record ---
History of Present Illness - General Chief Complaint: Cough Stated Complaint: OVI/FLUID ON LUNGS Time Seen by Provider: 07/22/19 14:21 Source: Patient Mode of Arrival: Ambulatory Limitations: No limitations - History of Present Illness Initial Comments: The patient is here due to a 2 week hx of cough and congestion. He did have a seizure 3 weeks ago and feels he may have aspirated. There has been no fever, chills, vomiting, or SOB. MD Complaint: Cough, Nasal congestion Onset/Timin -: Days(s) - Related Data Home Medications Medication Instructions Recorded Confirmed Last Taken Levetiracetam [Keppra] 500 mg PO BID 07/22/19 07/22/19 07/22/19 Previous Rx's Medication Instructions Recorded Doxycycline Monohydrate [Mondoxyne 100 mg PO BID 7 Days #14 capsule 07/22/19 Nl] Allergies Allergy/AdvReac Type Severity Reaction Status Date / Time No Known Drug Allergies Allergy Verified 07/22/19 14:16 Travel/Exposure Screening - Travel/Exposure Within Last 30 Days Have you traveled within the last 30 days?: No - Travel/Exposure Within Last Year Have you traveled outside the [place] in the last year?: No - Additonal Travel/Exposure Details Have you been exposed to anyone with a communicable illness?: No - Travel Symptoms Symptom Screening: None Review of Systems Constitutional: Reports: Malaise. Denies: Chills, Fever Eyes: Denies: Eye discharge ENT: Reports: Congestion Respiratory: Reports: Cough. Denies: Dyspnea, Hemoptysis Cardiovascular: Denies: Chest pain Past Medical History - SOCIAL HISTORY Smoking Status: Former smoker Alcohol Use: None Drug Use: None - RESPIRATORY Hx Respiratory Disorders: Yes Hx Asthma: Yes - CARDIOVASCULAR Hx Cardio Disorders: Yes Comment:: Murmur - NEURO Hx Neuro Disorders: Yes Hx Dizziness: Yes Hx Seizures: Yes (07/01/19) Comment:: [place] 2002, [facility] at age 10 lasting 8 months; -2016 fall w/subdural - GI Hx GI Disorders: No - Hx Genitourinary Disorders: Yes Hx Bladder Problem: Yes - ENDOCRINE Hx Endocrine Disorders: No - MUSCULOSKELETAL Hx Musculoskeletal Disorders: Yes Hx Osteoporosis: Yes - PSYCH Hx Psych Problems: Yes Hx Anxiety: Yes Hx Depression: Yes - HEMATOLOGY/ONCOLOGY Hx Hematology/Oncology Disorders: No Family Medical History Any Significant Family History?: Yes Hx Dementia: Mother, Grandparents Physical Exam - General General Appearance: Alert, Oriented x3, Cooperative, No acute distress - Head Head exam: Atraumatic, Normocephalic, Normal inspection - Eye Eye exam: Normal appearance, PERRL - ENT Throat exam: Normal inspection. negative: Tonsillar erythema, Tonsillar exudate - Neck Neck exam: Normal inspection, Full ROM. negative: Lymphadenopathy, Meningismus, Tenderness - Respiratory Respiratory exam: Normal lung sounds bilaterally. negative: Respiratory distress - Cardiovascular Cardiovascular Exam: Regular rate, Normal rhythm, Normal heart sounds - GI/Abdominal GI/Abdominal exam: Soft, Normal bowel sounds. negative: Tenderness - Extremities Extremities exam: Normal inspection, Full ROM, Normal capillary refill. negative: Tenderness - Neurological Neurological exam: Alert, Normal gait. negative: Abnormal gait, Motor sensory deficit - Skin Skin exam: negative: Rash Course Vital Signs 07/22/19 14:21 Temperature 98.9 F Pulse Rate 74 Respiratory 20 Rate Blood Pressure 118/80 Pulse Ox 97 - Reevaluation(s) Reevaluation #1: The patient is doing very well at this time. I did discuss the neg xray with the patient and the fact we will place him on Doxycycline due to the 2 week hx of cough. He is to see his PCP if not better in 3 days. 07/22/19 15:06 Medical Decision Making - Data Complexity MDM Data: X-Ray Ordered and/or Reviewed - Radiology Data Radiology results: Report reviewed (CXR: Neg.) Disposition Disposition: Discharge Clinical Impression: Bronchitis Disposition: Home, Self-Care Condition: (2) Stable Instructions: Cold Symptoms (ED) Additional Instructions: Please take the Doxycycline as directed and please see your family doctor if not better in 3 days. Return to the ER for any worsening symptoms. Prescriptions: Doxycycline Monohydrate [Mondoxyne Nl] 100 mg PO BID 7 Days #14 capsule Forms: Patient Portal Access Time of Disposition: 15:08 Quality - Quality Measures Quality Measures: N/A - Blood Pressure Screening View Details: Yes Does Patient Have Any of the Following: No Blood Pressure Classification: Pre-Hypertensive BP Reading Systolic Measurement: 118 Diastolic Measurement: 80 Screening for High Blood Pressure: < Pre-Hypertensive BP, F/U Documented > [G8950] Pre-Hypertensive Follow-up Interventions: Referral to alternative/primary care provider.
--- NOTE | 2019-07-22 15:02 | RADIOLOGY REPORT ---
EXAMINATION: Two View Chest Radiographs EXAM DATE: 07/22/2019 2:52 PM TECHNIQUE: Frontal and lateral views INDICATION: cough COMPARISON: Chest radiograph 05/10/2019 ENCOUNTER: Not applicable FINDINGS: The heart and mediastinal contour are within normal limits and stable. The lung is hyperinflated with flattening of the hemidiaphragms. Chronic interstitial lung markings are unchanged. No lung consolid ation or pleural effusions are present. No pneumothorax. Osseous structures and soft tissue markings appear intact. IMPRESSION: 1. No acute cardiopulmonary disease is present. 2. COPD Dictated by: John Walker DO on 07/22/2019 2:58 PM. .
== END 2019-07-22 15:20 | disposition home or self-care (01) ==
LOC: ER 13:54
DX: J20.9 Acute bronchitis, unspecified (principal); F17.210 Nicotine dependence, cigarettes, uncomplicated
CPT/HCPCS: 71046; 99283